=== PATIENT | female | born 2000 | race Caucasian/White ===

== ENCOUNTER 2024-11-16 02:32 | Emergency (ER) | payer MEDICAID ==
[~2024-11-16] VITALS: Ht 165.1 cm; Wt 77.1 kg
[2024-11-16 02:45] VITALS: O2SAT 98
[2024-11-16] MEDS ORDERED: AM250 MT (05:09)
[2024-11-16 05:23] VITALS: BP 118/71; PULSE 70; RESP 19; TEMP 37.00296; O2SAT 98
== END 2024-11-16 05:25 | disposition home or self-care (01) ==
LOC: ER 02:32
DX: O99.891 Other specified diseases and conditions complicating pregnancy (principal); Z3A.24 24 weeks gestation of pregnancy
CPT/HCPCS: 99283